=== PATIENT | male | born 1960 | race Hispanic/Latino ===

== ENCOUNTER 2018-03-06 16:26 | Emergency (ER) | payer BC ==
[2018-03-06 16:32] VITALS: BP 122/89; PULSE 91; RESP 18; TEMP 98.1; O2SAT 97
[2018-03-06 16:33] VITALS: BMI 29.8
[2018-03-06] MEDS ORDERED: Sodium Chloride 0.9% 1,000 ML IV STA (17:21)
--- NOTE | 2018-03-06 17:24 | ED PDOC ---
Hyperglycemia/Hypoglycemia Time Seen by Provider: 03/06/18 17:13 Chief Complaint (Nursing): High Blood Sugar History Per: Patient Onset/Duration Of Symptoms: Unknown Current Symptoms Are (Timing): Still Present Current Diabetic Medications: Insulin : The patient does not have any of the infectious symptoms listed except for those marked. Additional Complaint(s): Referred from [facility] for elevatd blood glucose. Seen at [facility] last week and tx'ed with addl Insulin and IV fluids. Denies NVD. Denies fever. Past Medical History Vital Signs: Last Vital Signs Temp 98.1 F 03/06/18 16:31 Pulse 91 H 03/06/18 16:31 Resp 18 03/06/18 16:31 BP 122/89 03/06/18 16:31 Pulse Ox 97 03/06/18 16:31 - Medical History PMH: Diabetes, HIV, HTN, Hyperlipidemia Denies: Deep Vein Thrombosis, Chronic Kidney Disease - Surgical History Surgical History: Denies: Pacemaker - Family History Family History: States: Unknown Family Hx - Immunization History Hx Tetanus Toxoid Vaccination: No Hx Influenza Vaccination: No Hx Pneumococcal Vaccination: No - Home Medications Home Medications: Ambulatory Orders Medication Instructions Recorded RX: Aspirin [Adult Aspirin] 81 mg PO DAILY 11/12/17 RX: Atorvastatin Calcium 20 mg PO HS 11/12/17 RX: Darunavir [Prezista] 800 mg PO DAILY 11/12/17 RX: Dolutegravir Sodium [Tivicay] 50 mg PO DAILY 11/12/17 RX: Ezetimibe 10 mg PO DAILY 11/12/17 RX: Fenofibrate [Tricor] 145 mg PO DAILY 11/12/17 RX: Furosemide [Lasix] 40 mg PO DAILY 11/12/17 RX: Ritonavir [Norvir] 100 mg PO DAILY 11/12/17 RX: Sildenafil [Revatio] 20 mg PO DAILY 11/12/17 RX: Valsartan [Diovan] 40 mg PO DAILY 11/12/17 RX: amLODIPine [Norvasc] 5 mg PO DAILY 11/12/17 RX: metFORMIN [glucOPHAGE] 500 mg PO BID 11/12/17 - Allergies Allergies/Adverse Reactions: Allergies Allergy/AdvReac Type Severity Reaction Status Date / Time No Known Allergies Allergy Verified 03/06/18 16:48 Review of Systems ROS Statement: Except As Marked, All Systems Reviewed And Found Negative Physical Exam - Reviewed Nursing Documentation Reviewed: Yes Vital Signs Reviewed: Yes - Physical Exam Appears: Positive for: Non-toxic, No Acute Distress Head Exam: Positive for: ATRAUMATIC, NORMAL INSPECTION, NORMOCEPHALIC Skin: Positive for: Normal Color, Warm, DRY Eye Exam: Positive for: EOMI, Normal appearance, PERRL ENT: Positive for: Normal ENT Inspection Neck: Positive for: Normal, Painless ROM Cardiovascular/Chest: Positive for: Regular Rate, Rhythm Respiratory: Positive for: CNT, Normal Breath Sounds Gastrointestinal/Abdominal: Positive for: Normal Exam, Soft Back: Positive for: Normal Inspection Extremity: Positive for: Normal ROM Neurologic/Psych: Positive for: Alert, Oriented - Laboratory Results Result Diagrams: 03/06/18 18:16 03/06/18 18:16 - ECG O2 Sat by Pulse Oximetry: 97 Disposition - Clinical Impression Clinical Impression: Hyperglycemia - Patient ED Disposition Is Patient to be Admitted: Transfer of Care - Disposition Referrals: Devi Romero MD [Family Provider] - Disposition: Routine/Home Disposition Time: 19:00 Condition: IMPROVED Instructions: Hyperglycemia, Adult, The ABCs of Diabetes Forms: [facility] [employer] ([place]) Patient Signed Over To: Zach Tucker
[2018-03-06 18:23] LABS: BASO % 0.7 % (0.0-2.0); EOS # 0.1 K/uL (0.0-0.7); EOS % 1.9 % (0.0-4.0); HEMOGLOBIN 14.7 g/dL (12.0-18.0); LYMPH # 1.8 K/uL (1.0-4.3); LYMPH % 31.5 % (20.0-40.0); MEAN CELL VOLUME 85.6 fl (80.0-94.0); MEAN CORPUSCULAR HEMOGLOBIN 30.3 pg (27.0-31.0); MEAN CORPUSCULAR HGB CONC 35.4 g/dL (33.0-37.0); MONO # 0.4 K/uL (0.0-0.8); MONO % 7.4 % (0.0-10.0); NEUT # 3.3 K/uL (1.8-7.0); NEUT % 58.5 % (50.0-75.0); NRBC % 0.2 % (0.0-0.0); RBC 4.87 Mil/uL (4.40-5.90); RED CELL DISTRIBUTION WIDTH 14.2 % (11.5-14.5); WHITE BLOOD COUNT 5.6 K/uL (4.8-10.8)
[2018-03-06] MEDS ORDERED: Insulin Regular 100 units/ml SC STA (18:27)
[2018-03-06 18:35] LABS: ALB/GLOB RATIO 1.1 (1.0-2.1); ALBUMIN 4.1 g/dL (3.5-5.0); ALT/SGPT 35 U/L (21-72); AST/SGOT 26 U/L (17-59); BLOOD UREA NITROGEN 17 mg/dl (9-20); CALCIUM 9.6 mg/dL (8.4-10.2); GFR NON-AFRICAN AMERICAN > 60
[2018-03-06] MEDS ORDERED: Insulin Regular 100 units/ml ONE (18:35)
--- NOTE | 2018-03-06 20:25 | ED PDOC ---
- Laboratory Results Result Diagrams: 03/06/18 18:16 03/06/18 18:16 - ECG O2 Sat by Pulse Oximetry: 97 (RA) Pulse Ox Interpretation: Normal Medical Decision Making Medical Decision Making: Time: 0 -- Patient endorsed to me by Dr. Mukherjee, pending repeat accucheck after medications Time: 2099 --Patient's blood sugar is coming down --Patient is feeling well, has endocrinology and nutrition appointments as outpatient scheduled --Strongly advised diet compliance and followup with PMD --Well appearing with normal vitals upon discharge Scribe Attestation: Documented by Huy Florez acting as a scribe for Zach Tucker MD. Provider Scribe Attestation: All medical record entries made by the Scribe were at my direction and personally dictated by me. I have reviewed the chart and agree that the record accurately reflects my personal performance of the history, physical exam, medical decision making, and the department course for this patient. I have also personally directed, reviewed, and agree with the discharge instructions and disposition. Disposition - Clinical Impression Clinical Impression: Hyperglycemia - POA Present On Arrival: None - Disposition Referrals: Devi Romero MD [Family Provider] - Disposition: Routine/Home Disposition Time: 21:06 Condition: IMPROVED Instructions: The ABCs of Diabetes, Hyperglycemia, Adult Forms: [employer] ([place])
== END 2018-03-06 21:16 | disposition home or self-care (01) ==
LOC: H.ER 16:26
DX: E11.65 Type 2 diabetes mellitus with hyperglycemia (principal); Z79.84 Long term (current) use of oral hypoglycemic drugs; E78.5 Hyperlipidemia, unspecified; I10 Essential (primary) hypertension
CPT/HCPCS: 80053; 82948; 85025; 96360; 96372; 99284; J7030